=== PATIENT | male | born 1975 ===

== ENCOUNTER 2024-04-03 13:45 | Emergency (ER) | payer OTHER ==
[~2024-04-03] VITALS: Ht 177.8 cm; Wt 90.7 kg
[2024-04-03] MEDS ORDERED: Ketorolac Tromethamine 30mg Vial IV ONE (14:20)
[2024-04-03] MEDS ORDERED: IBUP800 PO (15:29)
[2024-04-03] MEDS ORDERED: HYDROCODONE-AC1 EA10 PO (15:29)
== END 2024-04-03 15:53 | disposition home or self-care (01) ==
LOC: ER 13:45
DX: S82.142A Displaced bicondylar fracture of left tibia, initial encounter for closed fracture (principal); V86.55XA Driver of 3- or 4- wheeled all-terrain vehicle (ATV) injured in nontraffic accident, initial encounter
CPT/HCPCS: 29505; 73562-LT; 73590; 73700; 96374-59; 99284-25; J1885